=== PATIENT | male | born 1960 | race Caucasian/White ===

== ENCOUNTER 2020-01-08 12:25 | Emergency (ER) | payer OTHER ==
[~2020-01-08] VITALS: Ht 170.2 cm; Wt 93.0 kg
[2020-01-08 12:48] VITALS: BP 130/63
--- NOTE | 2020-01-08 13:02 | NUR ---
PATIENT AMBULATED TO BED 1.
--- NOTE | 2020-01-08 13:07 | NUR ---
SEEN BY HIS PMD LAST WEEK--TESTED NEGATIVE COVID-19C STATES SEEN BY PMD, LAST WEEK RETURNS FOR NOT IMPROVVING
[2020-01-08 15:19] VITALS: BP 130/63
--- NOTE | 2020-01-08 15:19 | NUR ---
Patient discharged with v/s stable. Written and verbal after care instructions given and explained. Patient alert, oriented and verbalized understanding of instructions. Ambulatory with steady gait. All questions addressed prior to discharge. ID band removed. Patient advised to follow up with PMD. Rx of AZITHROMYCIN, BENZONATE given. Patient educated on indication of medication including possible reaction and side effects. Opportunity to ask questions provided and answered.
== END 2020-01-08 15:19 | disposition home or self-care (01) ==
LOC: MED 12:25
DX: J18.9 Pneumonia, unspecified organism (principal); R05 Cough; J32.9 Chronic sinusitis, unspecified
CPT/HCPCS: 71045; 81002; 99283; Q0092